=== PATIENT | female | born 1960 | race Two or more races ===

== ENCOUNTER 2019-03-20 09:30 | Day surgery (SDC) | payer BC ==
[2019-03-20] MEDS ORDERED: NALOXONE HCL INJ/PF 0.4 MG/1 ML SDV ONE (10:27)
[2019-03-20] MEDS ORDERED: ONDANSETRON HCL INJ/PF 4 MG/2 ML SDV ONE (10:27)
[2019-03-20] MEDS ORDERED: MIDAZOLAM 2 MG/2 ML INJ ONE (10:27)
[2019-03-20] MEDS ORDERED: DIPHENHYDRAMINE HCL 50 MG/ML VIAL ONE (10:27)
[2019-03-20] MEDS ORDERED: FENTANYL CITRATE INJ/PF 100 MCG/2 ML AMPUL ONE (10:27)
[2019-03-20] MEDS ORDERED: EPINEPHRINE INJ 1 MG/10 ML DISP.SYRIN ONE (10:28)
[2019-03-20] MEDS ORDERED: FLUMAZENIL INJ 0.5 MG/5 ML VIAL ONE (10:28)
[2019-03-20] MEDS ORDERED: GLUCAGON,HUMAN RECOMB 1 MG INJ ONE (10:28)
[2019-03-20] MEDS ORDERED: FENTANYL CITRATE INJ/PF 50 MCG/1 ML 50 ML SDV IV ONE ×4 (10:51→11:07)
[2019-03-20] MEDS ORDERED: MIDAZOLAM 2 MG/2 ML INJ IV ONE ×5 (10:51→11:14)
--- NOTE | 2019-03-20 11:30 | Discharge Summary ---
Discharge Summary (SDC) - Discharge Final Diagnosis: Rectal polyp; internal hemorrhoids Date of Surgery: 03/20/19 Discharge Date: 03/20/19 Condition: Good Treatment or Instructions: [place] [id number] POST ENDOSCOPY DISCHARGE INSTRUCTIONS 1. Diet: Start clear liquids that a regular diet as tolerated. 2. Resume all preoperative medications. All oral anticoagulants and aspirins can be resumed 24 hours after procedure. 3. If a polypectomy was performed some bleeding per rectum may occur. This should stop within 3 days. If not, please contact the office. 4. If you had a colonoscopy you may experience some bloating and delayed return of normal bowel function for several days, your regular bowel movement pattern should resume within a week. 5. Please contact [facility] at to make an appointment with Dr. Dias for 1 to 3 weeks following procedure. 6. If you have any questions or concerns regarding your care,treatment plan or follow up, please contact our office. 7. Per clinical guidelines we recommend you undergo a repeat colonoscopy in 3 years. Referrals: NOREEN COLIN MD [Primary Care Provider] - Discharge Diet: As Tolerated Discharge Activity: Activity As Tolerated Home Care Assistance: None Needed Report the Following to Your Physician Immediately: Shortness of Breath, Increase in Pain, Fever over 101 Degrees
--- NOTE | 2019-03-20 11:33 | Operative Report ---
Operative Report DATE OF SURGERY: 03/20/19 PREOPERATIVE DIAGNOSIS: Personal history of colon polyps POSTOPERATIVE DIAGNOSIS: Same with. 1. Internal hemorrhoid. 2. Rectal polyp OPERATION: 1. Total colonoscopy to cecum. 2. Rectal polypectomy SURGEON: NIRALI BARAHONA ANESTHESIA: Moderate Sedation TISSUE REMOVED OR ALTERED: 1 rectal polyp COMPLICATIONS: None ESTIMATED BLOOD LOSS: Scant INTRAOPERATIVE FINDINGS: See below PROCEDURE: Obtaining informed consent the patient was taken from the preoperative holding area to the main endoscopy suite where monitoring devices were attached to the patient. Plan and surgical timeout were conducted The patient was placed in the left lateral decubitus position with knees to chest. A perianal examination was performed. There was no visible or palpable anorectal pathology. Sphincter tone was felt to be normal. The flexible adult colonoscope was advanced through the anal rectal canal, all the way to the cecum. Visualization of the cecum was achieved as was the ileocecal valve, the appendiceal orifice and transillumination of the anterior abdominal wall. This was an excellent study on the well-prepped bowel. The colonoscope was withdrawn slowly and methodically checked and the mucosa carefully. There was no evidence of tumor, stricture, bleeding; There was no evidence of diverticuloses. The scope was slowly withdrawn through the anal rectal canal. Complete visualization of the rectum was achieved with photodocumentation. There was a small sessile polyp in the rectum consistent with hyperplastic polyp. It was removed with a cold forceps device. Bleeding minimal. The scope was withdrawn to the patient's anus. The patient tolerated the procedure well and was taken to the recovery area in stable condition. Surveillance guidelines, patient be appropriate candidate for colonoscopy in 3 years.
[2019-03-20 12:26] VITALS: BP 110/59
== END 2019-03-20 12:26 | disposition home or self-care (01) ==
LOC: END 09:30
PROVIDERS: ATTEND Surgery
DX: Z12.11 Encounter for screening for malignant neoplasm of colon (principal); Z86.010 Personal history of colon polyps; D12.8 Benign neoplasm of rectum; K64.8 Other hemorrhoids
CPT/HCPCS: 45380; 88305 ×2; J2250; J3010 ×2; J0171; J1200; J1610; J2310; J2405; J3490